=== PATIENT | female | born 1940 | race Caucasian/White ===

== ENCOUNTER 2019-09-12 09:28 | Emergency (ER) | payer BC ==
--- NOTE | 2019-09-12 09:45 | Emergency Department Record ---
History of Present Illness - General Chief complaint: Extremity Problem Stated complaint: ANKLE INJURY Time Seen by Provider: 09/12/19 09:40 Source: Patient Mode of Arrival: Ambulatory Limitations: No limitations - History of Present Illness Initial comments: 78 yo female presents after tripping on Thursday. She mis-stepped on one step. She injured her left ankle. She has some pain and lateral swelling. No other complaints. She did hit her left eye area. No LOC. No headache. No dizziness. No vision changes. No neck pain. She has been ambulatory. She has a cane and walker at home and is using both. MD Complaint: Joint pain Onset/Timin -: Days(s) Location: Left, Ankle -: Yes Arthralgia Radiation: Proximal Severity scale (1-10): 3 Quality: Aching Consistency: Constant Worsens with: Walking, Weight bearing Associated Symptoms: Arthralgias - Related Data Allergies Allergy/AdvReac Type Severity Reaction Status Date / Time No Known Drug Allergies Allergy Verified 09/12/19 09:37 Travel Screening - Travel/Exposure Within Last 30 Days Have you traveled within the last 30 days?: No - Travel/Exposure Within Last Year Have you traveled outside the [place] in the last year?: No - Additonal Travel Details Have you been exposed to anyone with a communicable illness?: No - Travel Symptoms Symptom Screening: None Review of Systems Constitutional: Denies: Chills, Fever, Malaise, Weakness Eyes: Denies: Eye discharge ENT: Denies: Congestion, Throat pain Respiratory: Denies: Cough, Dyspnea Cardiovascular: Denies: Chest pain, Syncope Endocrine: Denies: Fatigue, Polydipsia, Polyuria Gastrointestinal: Denies: Abdominal pain, Diarrhea, Nausea, Vomiting Genitourinary: Denies: Dysuria, Urgency Musculoskeletal: Reports: As per HPI, Arthralgia, Joint swelling. Denies: Back pain, Myalgia Skin: Reports: Bruising. Denies: Change in color Neurological: Denies: Abnormal gait, Confusion, Headache, Numbness, Paresthesias, Tingling, Tremors, Vertigo, Weakness Psychiatric: Denies: Anxiety Hematological/Lymphatic: Denies: Easy bleeding, Easy bruising Past Medical History - SOCIAL HISTORY Smoking Status: Never smoker Alcohol Use: None Drug Use: None - RESPIRATORY Hx Respiratory Disorders: No - CARDIOVASCULAR Hx Cardio Disorders: Yes Hx Hypertension: Yes - NEURO Hx Neuro Disorders: No - GI Hx GI Disorders: No - Hx Genitourinary Disorders: No - ENDOCRINE Hx Endocrine Disorders: No Hx Diabetes: No Hx Thyroid Disease: No - MUSCULOSKELETAL Hx Musculoskeletal Disorders: Yes Hx Arthritis: Yes - PSYCH Hx Psych Problems: No - HEMATOLOGY/ONCOLOGY Hx Hematology/Oncology Disorders: No Family Medical History Any Significant Family History?: Yes Hx Cancer: Grandparents Hx Dementia: Mother Hx Heart Disease: Grandparents Hx HTN: Father, Mother, Grandparents Hx Resp Disorders: Father Physical Exam - General General Appearance: Alert, Oriented x3, Cooperative, No acute distress Limitations: No limitations - Head Head exam: negative: Atraumatic, Normal inspection Head exam detail: Abrasion Image of Face/Head: 1 - mild lateral bruising, full ROM without pain or double vision, no swelling. - Eye Eye exam: Normal appearance, PERRL, EOMI, Periorbital tenderness. negative: Conjunctival injection, Scleral icterus Pupils: Normal accommodation. negative: Irregular, Unequal - ENT ENT exam: Normal exam, Mucous membranes moist Ear exam: Normal external inspection Nasal Exam: Normal inspection Mouth exam: Normal external inspection - Neck Neck exam: Normal inspection, Full ROM. negative: Tenderness - Respiratory Respiratory exam: Normal lung sounds bilaterally. negative: Chest wall tenderness, Decreased breath sounds, Prolonged expiratory, Respiratory distress, Rhonchi, Stridor, Wheezes - Cardiovascular Cardiovascular Exam: Regular rate, Normal rhythm, Normal heart sounds Peripheral Pulses: 2+: Radial (R), Radial (L) - GI/Abdominal GI/Abdominal exam: Soft. negative: Tenderness - Rectal Rectal exam: Deferred - exam: Deferred - Extremities Extremities exam: Joint swelling, Normal capillary refill, Tenderness, Other (Non tender hip and knee, no foot tenderness). negative: Normal inspection, Calf tenderness, Pedal edema Image of Feet: 1 - lateral tenderness, soft, intact achilles, foot non tender, medial not tender - Back Back exam: Denies: CVA tenderness (R), CVA tenderness (L) - Neurological Neurological exam: Alert, Oriented X3 - Psychiatric Psychiatric exam: Normal affect, Normal mood. negative: Agitated, Anxious - Skin Skin exam: Dry, Intact, Normal color, Warm Course Vital Signs 09/12/19 09:38 Temperature 98.0 F Pulse Rate [ 91 H Pulse Ox Probe] Respiratory 20 Rate Blood Pressure 129/75 [Left Arm] Pulse Ox 96 - Reevaluation(s) Reevaluation #1: 09/12/19 10:12 The XR was reviewed There is a none displaced lateral malleolar fracture She will be placed in a [employer]. She has a walker already 09/12/19 10:15 EMR reviewed The patient's orthopedic doctor is Dr Villegas Disposition Disposition: Discharge Clinical Impression: Fracture of lateral malleolus of fibula Qualifiers: Encounter type: initial encounter Fracture type: closed Fracture alignment: nondisplaced Laterality: left Qualified Code(s): S82.65XA - Nondisplaced fracture of lateral malleolus of left fibula, initial encounter for closed fracture Disposition: Home, Self-Care Condition: (1) Good Instructions: Ankle Fracture (ED) Additional Instructions: Continue to use your cane and walker for support and safety. Call your orthopedic doctor for a follow up appointment this week Return if you have any new concerns, pain, problems with the boot Referrals: CHAUNCEY VILLEGAS [DOCTOR OF OSTEOPATH] - Forms: Patient Portal Access Time of Disposition: 10:15 Quality - Quality Measures Quality Measures: N/A - Blood Pressure Screening Does Patient Have Any of the Following: No Blood Pressure Classification: Pre-Hypertensive BP Reading Systolic Measurement: 129 Diastolic Measurement: 75 Screening for High Blood Pressure: < Pre-Hypertensive BP, F/U Documented > [[id number]] Pre-Hypertensive Follow-up Interventions: Referral to alternative/primary care provider.
--- NOTE | 2019-09-12 10:28 | RADIOLOGY REPORT ---
EXAMINATION: Left Ankle, Complete Minimum Three Views EXAM DATE: 09/12/2019 9:57 AM TECHNIQUE: AP, lateral, and oblique INDICATION: fall COMPARISON: None ENCOUNTER: Initial FINDINGS: Mild diffuse osteopenia. There is an oblique acute fracture without significant displacement involvin g the left lateral malleolus. No other fracture. No dislocation. Moderately sized plantar calcaneal s pur. Large dorsal spur at the midfoot. Mild bimalleolar soft tissue swelling. IMPRESSION: Acute nondisplaced oblique fracture involving the left lateral malleolus with adjacent mild soft tiss ue swelling. Dictated by: Gordon Freitas DO on 09/12/2019 10:25 AM. .
== END 2019-09-12 10:40 | disposition home or self-care (01) ==
LOC: ER 09:28
DX: S82.62XA Displaced fracture of lateral malleolus of left fibula, initial encounter for closed fracture (principal); S00.83XA Contusion of other part of head, initial encounter; I10 Essential (primary) hypertension; W18.09XA Striking against other object with subsequent fall, initial encounter
CPT/HCPCS: 99283